=== PATIENT | female | born 1935 | race Caucasian/White ===

== ENCOUNTER → 2016-11-14 | Outpatient (CLI) | payer OTHER | END | disposition home or self-care (01) | LOC: GMAM 12:59 | PROVIDERS: ATTEND Family Medicine | DX: E03.9 Hypothyroidism, unspecified (principal); E53.8 Deficiency of other specified B group vitamins ==

== ENCOUNTER → 2017-04-29 | Outpatient (CLI) | payer OTHER | END | disposition home or self-care (01) | LOC: GMAM 10:51 | PROVIDERS: ATTEND Family Medicine | DX: E53.8 Deficiency of other specified B group vitamins (principal); E03.9 Hypothyroidism, unspecified ==

== ENCOUNTER 2017-09-25 11:02 | Emergency (ER) | payer OTHER ==
--- NOTE | 2017-09-25 12:29 | RAD ---
EXAM DESCRIPTION: Chest,1 View CLINICAL HISTORY: 82 years Female, weakness, COPD COMPARISON: None. TECHNIQUE: AP portable chest. FINDINGS: Heart size is prominent with normal pulmonary vascularity. Discoid atelectasis is seen in the lung bases. Otherwise no consolidating infiltrate in other areas of the lungs. No pulmonary mass or worrisome nodule. No pneumothorax or pleural effusion. 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 Plate and screws are in place in the region of the upper L-spine. Methacrylate is seen in the mid T-spine. 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 IMPRESSION: Prominent heart without congestive failure. Discoid atelectasis in the lung bases. Electronically signed by: Mp Emanuel MD 09/25/2017 12:28 PM [facility]
[2017-09-25] MEDS ORDERED: SODIUM CHLORIDE 0.9% 1000ML 1,000 ML IVS ONE (13:05)
--- NOTE | 2017-09-25 13:22 | ED.PDOC ---
History of Present Illness - General Chief Complaint: General Stated Complaint: weakness Time Seen by Provider: 09/25/17 11:41 Source: patient, family Exam Limitations: no limitations - History of Present Illness Initial Comments: Patient presents with weakness since this morning. Her son said that she spilled cereal on herself because she couldn't hold the bowel. Later this morning she dropped some utensils. No N/V/D. No history of diabetes. Has hypothyroidism. No cardiac history. Has history of COPD and still smokes up to one ppd for 69 years. She did have a cough four days ago that was productive of dark green sputum but that has resolved. Timing/Duration: 4-6 hours Severity: moderate Improving Factors: nothing Worsening Factors: nothing Associated Symptoms: weakness Allergies/Adverse Reactions: Allergies NO KNOWN ALLERGY Allergy (Verified 07/12/14 14:18) Home Medications: Ambulatory Orders Diltiazem HCl [Dilt-Xr] 180 mg PO BID 07/12/14 HYDROcodone 5MG/APAP 325MG [[place] 5/325] 1 tab PO QID 07/12/14 Morphine Sulfate 15 mg PO BID 07/12/14 Cyclobenzaprine HCl 5 mg PO PRN 09/25/17 Duloxetine HCl 60 mg PO DAILY 09/25/17 Gabapentin 200 mg PO TID 09/25/17 Ibuprofen [Motrin] 600 mg PO TID 09/25/17 Levothyroxine Sodium 75 mcg PO DAILY 09/25/17 Review of Systems - Review of Systems Constitutional: States: see HPI EENTM: States: no symptoms reported Respiratory: States: see HPI Cardiology: States: no symptoms reported Gastrointestinal/Abdominal: States: no symptoms reported Genitourinary: States: no symptoms reported Musculoskeletal: States: no symptoms reported Skin: States: no symptoms reported Neurological: States: no symptoms reported Endocrine: States: no symptoms reported Hematologic/Lymphatic: States: no symptoms reported Past Medical History (General) - Patient Medical History Hx Stroke: No Hx Cardiac Disorders: Yes Hx Congestive Heart Failure: No Hx Hypertension: Yes Hx Diabetes: No - Vaccination History Hx Influenza Vaccination: No Hx Pneumococcal Vaccination: No - Social History Hx Tobacco Use: Yes Family Medical History - Family History Mother Family History: Unknown Living Status: Unknown Physical Exam - Physical Exam General Appearance: Alert Respiratory: chest non-tender, lungs clear Cardiovascular/Chest: normal peripheral pulses, regular rate, rhythm, no edema Gastrointestinal/Abdominal: normal bowel sounds, non tender, soft Back Exam: no CVA tenderness Extremity: normal range of motion Neurologic: senior applications architect II-XII nml as tested, no motor/sensory deficits Skin Exam: normal color Lymphatic: no adenopathy Progress - Progress Progress: 09/25/17 14:09 EKG read by me showed LBBB that was not present on previous EKG in 07/2014. Troponin 0.14. ACS protocol initiated. Patient received ASA 324 mg po x one, Plavix 300 mg po x one, atorvastatin 80 mg po x one, heparin 5000 IU IV push then 1000 units per hour. Transferred by ALS to [facility] in [place] for cardiology evaluation. Departure - Departure Clinical Impression: New onset left bundle branch block (LBBB), Troponin I above reference range Disposition: Transfer to Hospital Condition: Serious Departure Forms: ED Discharge - Pt. Copy, Patient Portal Self Enrollment Diet: other - NPO Referrals: Junito Brito MD [Primary Care Provider] - 1-2 Weeks Home Medications: Ambulatory Orders Diltiazem HCl [Dilt-Xr] 180 mg PO BID 07/12/14 HYDROcodone 5MG/APAP 325MG [[place] 5/325] 1 tab PO QID 07/12/14 Morphine Sulfate 15 mg PO BID 07/12/14 Cyclobenzaprine HCl 5 mg PO PRN 09/25/17 Duloxetine HCl 60 mg PO DAILY 09/25/17 Gabapentin 200 mg PO TID 09/25/17 Ibuprofen [Motrin] 600 mg PO TID 09/25/17 Levothyroxine Sodium 75 mcg PO DAILY 09/25/17
[2017-09-25 13:31] VITALS: BP 142/94
[2017-09-25] MEDS ORDERED: HEPARIN SODIUM (PORCINE) 5,000 U/ML VIAL IV ONE (13:34)
[2017-09-25] MEDS ORDERED: ATORVASTATIN 20 MG TAB PO ONE (13:36)
[2017-09-25] MEDS ORDERED: CLOPIDOGREL 75 MG TAB PO ONE (13:37)
[2017-09-25] MEDS ORDERED: ASPIRIN (CHEWABLE) 81 MG TAB PO ONE (13:37)
[2017-09-25] MEDS ORDERED: HEPARIN PREMIX 500 ML ONE (13:39)
[2017-09-25] MEDS ORDERED: HEPARIN PREMIX 25,000 UNITS in PREMIX BAG 1 BAG IVS ONE (13:45)
[2017-09-25 14:30] VITALS: TEMP 97; O2SAT 96
== END 2017-09-25 14:30 | disposition short-term general hospital (02) ==
LOC: ER 11:02
DX: I44.7 Left bundle-branch block, unspecified (principal); I10 Essential (primary) hypertension; Z87.891 Personal history of nicotine dependence; F17.200 Nicotine dependence, unspecified, uncomplicated
CPT/HCPCS: 36415; 36416; 71045; 80053; 82550; 82553; 82948; 83880; 84436; 84443; 84484; 85025; 85610; 85730; 93005; J1644; J7030